=== PATIENT | female | born 1950 | race Caucasian/White ===

== ENCOUNTER → 2017-03-24 | Outpatient (CLI) | payer OTHER, MEDICARE | LOC: MMPC 09:00 | PROVIDERS: ATTEND Obstetrics & Gynecology | DX: R07.89 Other chest pain (principal); Z12.31 Encounter for screening mammogram for malignant neoplasm of breast | CPT/HCPCS: 99212; G0463 ==

== ENCOUNTER → 2017-03-30 | Outpatient (CLI) | payer OTHER, MEDICARE ==
--- NOTE | 2017-03-30 14:29 | DI ---
MAMMO DIAGNOSTIC B/L,03/30/2017 1:37 PM: Clinical History: Asymmetric densities within both breasts Previous Exam: Mar 24 2017 Findings: Breast tomosynthesis is obtained bilaterally, and demonstrates no evidence of abnormal mass in the ar eas of question. These areas correspond with normal fibroglandular elements. Computer-aided diagnostics were applied. Characteristically benign calcifications are seen. There is no architectural distortion. Impression: No mammographic evidence of malignancy. BIRADS: 2: Benign findings Recommendations: Annual screening. Note: Breast examination has been discussed and encouraged, and the patient informed to return if the re is any new palpable abnormality in the interval between screening. Individual imaging Assessment: Benign findings.
== END ==
LOC: MAMMO 13:34
PROVIDERS: ATTEND Obstetrics & Gynecology
DX: R92.8 Other abnormal and inconclusive findings on diagnostic imaging of breast (principal)
CPT/HCPCS: G0204; G0279